=== PATIENT | male | born 2000 | race African-American/Black ===

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

== ENCOUNTER 2021-06-16 12:31 | Emergency (ER) | payer SELFPAY ==
[2017-12-06 16:39] VITALS: BP 122/65
[~2021-06-16 12:31] MED LIST: AMOX875T PO; PRED50TA PO
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
== END 2021-06-16 16:08 | disposition left against medical advice (07) ==
LOC: ER 12:31
DX: M79.601 Pain in right arm (principal); Z53.21 Procedure and treatment not carried out due to patient leaving prior to being seen by health care provider
CPT/HCPCS: 73090; 73130

== ENCOUNTER 2021-06-16 18:02 | Emergency (ER) | payer SELFPAY ==
[~2021-06-16] VITALS: Ht 165.1 cm; Wt 60.0 kg
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
[2021-06-16 20:58] VITALS: BP 112/71
== END 2021-06-16 21:00 | disposition home or self-care (01) ==
LOC: ER 18:02
DX: S60.221A Contusion of right hand, initial encounter (principal); W22.8XXA Striking against or struck by other objects, initial encounter; Y93.89 Activity, other specified; Y92.89 Other specified places as the place of occurrence of the external cause; Y99.8 Other external cause status
CPT/HCPCS: 99283